=== PATIENT | female | born 1990 | race Caucasian/White ===

== ENCOUNTER 2022-10-05 07:30 | Day surgery (SDC) | payer OTHER ==
[2022-10-05] VITALS (228 sets, daily range): BP systolic 86–155; BP diastolic 52–112
[~2022-10-05] VITALS: Ht 165.1 cm; Wt 60.0 kg
[2022-10-05] MEDS ORDERED: ALBUTEROL SUL0.083 % IN (08:31)
[2022-10-05] MEDS ORDERED: ALLEGRA ALLERGY60 MG PO (08:31)
[2022-10-05] MEDS ORDERED: VENTOLIN HFA108 MCG PO (08:32)
[2022-10-05 08:34] LABS: BASO% 0.9 % (0-3); EOS% 15.6 % (0-8); HEMATOCRIT 43.7 % (37.0-47.0); HEMOGLOBIN 14.6 g/dl (12.0-16.0); IMMATURE GRANULOCYTES 0.2 % (0.0-5.0); LYMPH% 24.1 % (15-41); MEAN CELL VOLUME 87.9 fL CALC (80.0-100.0); MEAN CORPUSCULAR HGB 29.4 pG CALC (26.0-32.0); MEAN CORPUSCULAR HGB CONC 33.4 g/dL CAL (32.0-36.0); MONO% 10.9 % (2-13); NEUT# 2.6 thou/uL (2.00-7.15); NEUT% 48.3 % (42-76); RED BLOOD COUNT 4.97 mill/uL (4.20-5.60); RED CELL DISTRI WIDTH 11.8 % (11.5-15.5)
[2022-10-05 08:42] LABS: ALBUMIN 4.8 g/dL (3.2-5.0); ALKALINE PHOSPHATASE 113 u/l (38-126); ANION GAP 14 (6-22 (CALC)); BILIRUBIN, TOTAL 0.7 mg/dL (0.02-1.3); BUN 17 mg/dL (7-17); BUN/CREATININE RATIO 23 (12-20 (CALC)); CARBON DIOXIDE 32 mmol/l (22-30); CHLORIDE 97 mmol/l (95-108); CREATININE 0.8 mg/dL (0.5-1.0); GFR FOR AFR.AMER. > 60 ML/MIN (>=60 (CALC)); GFR OTHER RACES > 60 ML/MIN (>=60 (CALC)); POTASSIUM 3.9 mmol/l (3.5-5.1); SGOT/AST 170 u/l (14-36); SODIUM 139 mmol/l (137-146); TOTAL PROTEIN 7.9 g/dL (6.3-8.2)
[2022-10-05] MEDS ORDERED: NALTREXONE50 MG PO (15:53)
[2022-10-05] MEDS ORDERED: CLONIDINE0.1 MG PO (15:54)
[2022-10-05] MEDS ORDERED: KLONOPIN2 MG PO (15:54)
[2022-10-06] VITALS (7 sets, daily range): BP systolic 85–106; BP diastolic 52–58
[2022-10-06 04:44] LABS: BASO% 0.4 % (0-3); HEMATOCRIT 39.5 % (37.0-47.0); HEMOGLOBIN 13.6 g/dl (12.0-16.0); IMMATURE GRANULOCYTES 0.2 % (0.0-5.0); LYMPH% 16.5 % (15-41); MEAN CELL VOLUME 85.7 fL CALC (80.0-100.0); MEAN CORPUSCULAR HGB 29.5 pG CALC (26.0-32.0); MEAN CORPUSCULAR HGB CONC 34.4 g/dL CAL (32.0-36.0); MONO% 2.4 % (2-13); NEUT# 4.1 thou/uL (2.00-7.15); NEUT% 80.5 % (42-76); RED BLOOD COUNT 4.61 mill/uL (4.20-5.60); RED CELL DISTRI WIDTH 11.8 % (11.5-15.5)
[2022-10-06 04:55] LABS: ALBUMIN 4.4 g/dL (3.2-5.0); ALKALINE PHOSPHATASE 90 u/l (38-126); ANION GAP 15 (6-22 (CALC)); BILIRUBIN, TOTAL 0.6 mg/dL (0.02-1.3); BUN 16 mg/dL (7-17); BUN/CREATININE RATIO 22 (12-20 (CALC)); CARBON DIOXIDE 26 mmol/l (22-30); CHLORIDE 103 mmol/l (95-108); CREATININE 0.7 mg/dL (0.5-1.0); GFR FOR AFR.AMER. > 60 ML/MIN (>=60 (CALC)); GFR OTHER RACES > 60 ML/MIN (>=60 (CALC)); MAGNESIUM 2.4 mg/dL (1.6-2.3); SGOT/AST 72 u/l (14-36); SODIUM 139 mmol/l (137-146)
== END 2022-10-06 16:48 | disposition home or self-care (01) | DRG 897 ==
LOC: ANR 07:30 → MS2 07:32 → ANR 10-06 16:48
PROVIDERS: ATTEND Anesthesiology
DX: F11.20 Opioid dependence, uncomplicated (principal)
CPT/HCPCS: J1100; J2354; J3475